=== PATIENT | female | born 1955 | race Caucasian/White ===

== ENCOUNTER 2016-11-23 12:23 | Inpatient (IN) | payer MEDICARE, OTHER ==
[~2016-11-23 12:23] MED LIST: ABIL5TAB6 PO; ADVAI100I PO; ALBU0.086 NEB; AMBI10TA PO; CLON1 PO; CYCL1PAK PO; DULO20 PO; GABA100C4 PO; IBUP600 PO; LASI20TA PO; LEVO.05 PO; NORT75CA PO; OMEP20TA39 PO; OXYM10TA5 PO; RANI150 PO
--- NOTE | 2016-11-23 13:36 | RADHPO ---
EXAM DATE/TIME: 11/23/2016 13:11 [place] COMPARISON: CHEST PA & LAT, February 24, 2016, 1:11. INDICATIONS : Cough, chest pain, short of breath. MEDICAL HISTORY : Chronic obstructive pulmonary disease. SURGICAL HISTORY : None. ENCOUNTER: Initial ACUITY: 2 days PAIN SCORE: 7/10 LOCATION: Bilateral chest FINDINGS: PA and lateral views of the chest demonstrate the lungs to be symmetrically aerated without evidence of mass, infiltrate or effusion. The cardiomediastinal contours are unremarkable. Osseous structure s are intact. CONCLUSION: Normal examination with persistent small lung volumes. Michael Juárez MD on November 23, 2016 at 13:34 Board Certified Radiologist. This report was verified electronically.
[2016-11-23] MEDS ORDERED: cefTRIAXone 1,000 MG/NS 100 ML IV SCH ×2 (14:00)
[2016-11-23 14:35] LABS: AUTOMATED NEUTROPHIL # 10.3 TH/MM3 (1.8-7.7); BASOPHIL # 0.2 TH/MM3 (0-0.2); BASOPHIL % 1.7 % (0.0-2.0); EOSINOPHIL # 0.1 TH/MM3 (0-0.4); EOSINOPHIL % 0.7 % (0.0-4.0); HEMATOCRIT 40.4 % (35.0-46.0); HEMO FLAGS DIFF FINAL; LYMPH % 14.3 % (9.0-44.0); LYMPHOCYTE # 1.9 TH/MM3 (1.0-4.8); MEAN CORPUSCULAR HEMOGLOBIN 29.6 PG (27.0-34.0); MEAN CORPUSCULAR HGB CONC 32.9 % (32.0-36.0); MONO % 6.8 % (0.0-8.0); NEUT % 76.5 % (16.0-70.0); PLATELET COUNT 274 TH/MM3 (150-450); RED BLOOD COUNT 4.49 MIL/MM3 (4.00-5.30); RED CELL DISTRIBUTION WIDTH 13.9 % (11.6-17.2); WHITE BLOOD COUNT 13.4 TH/MM3 (4.0-11.0)
[2016-11-23 14:45] LABS: CHLORIDE 102 MEQ/L (98-107); POTASSIUM 3.6 MEQ/L (3.5-5.1); SODIUM (NA) 142 MEQ/L (136-145)
[2016-11-23 14:49] LABS: ANION GAP 8 MEQ/L (5-15); BICARBONATE 32.2 MEQ/L (21.0-32.0)
[2016-11-23 14:52] LABS: BLOOD UREA NITROGEN 16 MG/DL (7-18)
[2016-11-23 14:53] LABS: ALT (GPT) 50 U/L (10-53); AST (GOT) 16 U/L (15-37); GLOMERULAR FILTRATION RATE 71 ML/MIN (>89); TOTAL BILIRUBIN ADULT 0.3 MG/DL (0.2-1.0)
[2016-11-23 14:55] LABS: ALKALINE PHOSPHATASE 86 U/L (45-117)
[2016-11-23] MEDS: RESP: ALBUTEROL 2.5 MG/IPRATROPIUM 0.5 MG NEB (SCH) NEB ×2 (15:15→22:17)
[2016-11-23 15:19] VITALS: O2SAT 92
[2016-11-23 16:00] VITALS: BP 140/72; PULSE 80; RESP 19; TEMP 97.8; O2SAT 97
[2016-11-23 19:55] LABS: BLOOD, URINE TRACE (NEG); GLUCOSE,URINE NEG (NEG); KETONE, URINE NEG (NEG)
[2016-11-23 19:56] LABS: NITRITE,URINE POS (NEG)
[2016-11-23 19:59] LABS: METHOD OF COLLECTION CLEAN CATCH; RBC, URINE 0-3 /hpf (0-3); URINE COLOR YELLOW (YELLW/STRAW)
[2016-11-23 20:00] VITALS: BP 130/86; PULSE 95; RESP 20; TEMP 99.3; O2SAT 93
[2016-11-23 20:00] LABS: BACTERIA, URINE MANY /hpf
[2016-11-23 20:03] LABS: BARBITURATES, URINE NEG (NEG); COCAINE, URINE NEG (NEG)
[2016-11-23 20:04] LABS: AMPHETAMINE, URINE NEG (NEG)
[2016-11-23 20:06] VITALS: PULSE 91
[2016-11-23] MEDS: AZITHROMYCIN 500 MG/NS 250 ML IV SCH ×2 (20:46)
[2016-11-23] MEDS: BUDESONIDE-FORMOTEROL 160/4.5 MCG INHALER INH SCH (20:46)
[2016-11-23] MEDS: FLUoxetine HCL 10 MG CAP PO SCH (20:47)
[2016-11-23] MEDS: cefTRIAXone 1,000 MG/NS 100 ML IV SCH ×2 (20:47)
[2016-11-23] MEDS: CYCLOBENZAPRINE HCL 10 MG TAB PO SCH (20:48)
[2016-11-23] MEDS: GABAPENTIN 100 MG CAP PO SCH (20:48)
[2016-11-23] MEDS: clonazePAM 1 MG TAB PO SCH (20:48)
[2016-11-23] MEDS: DIVALPROEX SODIUM E.R. 500 MG TAB PO SCH (20:48)
[2016-11-23] MEDS: OXYMORPHONE 5 MG PO SCH (20:48)
[2016-11-23] MEDS: ARIPiprazole 5 MG TAB PO SCH (20:48)
[2016-11-23 22:17] VITALS: O2SAT 92
[2016-11-24] VITALS (9 sets, daily range): BP systolic 102–142; BP diastolic 64–86; PULSE 87–106; RESP 18–20; TEMP 97.1–98.8; O2SAT 93–98
[2016-11-24] MEDS: RESP: ALBUTEROL 2.5 MG/IPRATROPIUM 0.5 MG NEB (SCH) NEB ×4 (05:16→21:01)
[2016-11-24] MEDS: LEVOTHYROXINE SODIUM 100 MCG TAB PO SCH (05:49)
[2016-11-24] MEDS: BUDESONIDE-FORMOTEROL 160/4.5 MCG INHALER INH SCH ×2 (09:23→22:15)
[2016-11-24] MEDS: GABAPENTIN 100 MG CAP PO SCH ×2 (09:24→22:13)
[2016-11-24] MEDS: clonazePAM 1 MG TAB PO SCH ×2 (09:24→22:16)
[2016-11-24] MEDS: FUROSEMIDE 20 MG TAB PO SCH (09:25)
[2016-11-24] MEDS: PANTOPRAZOLE SOD 20 MG DELAYED RELEASE TAB PO SCH (09:25)
[2016-11-24] MEDS: CYCLOBENZAPRINE HCL 10 MG TAB PO SCH ×2 (09:25→22:16)
[2016-11-24] MEDS: FLUoxetine HCL 10 MG CAP PO SCH ×2 (09:26→22:14)
[2016-11-24] MEDS ORDERED: methylPREDNISolone SOD SUCC 125 MG/2 ML VIAL IV PUSH ONE (09:45)
[2016-11-24] MEDS: OXYMORPHONE 5 MG PO SCH ×2 (10:15→22:15)
[2016-11-24] MEDS: BENZONATATE 100 MG CAP PO PRN ×2 (10:31→22:14)
[2016-11-24] MEDS: ARIPiprazole 5 MG TAB PO SCH (22:14)
[2016-11-24] MEDS: DIVALPROEX SODIUM E.R. 500 MG TAB PO SCH (22:15)
[2016-11-24] MEDS: AZITHROMYCIN 500 MG/NS 250 ML IV SCH ×2 (22:20)
[2016-11-24] MEDS: cefTRIAXone 1,000 MG/NS 100 ML IV SCH ×2 (23:42)
[2016-11-25] VITALS (9 sets, daily range): BP systolic 109–128; BP diastolic 65–80; PULSE 79–94; RESP 20; TEMP 96.3–98.4; O2SAT 95–99
[2016-11-25] MEDS: RESP: ALBUTEROL 2.5 MG/IPRATROPIUM 0.5 MG NEB (SCH) NEB ×4 (03:50→21:29)
[2016-11-25] MEDS: LEVOTHYROXINE SODIUM 100 MCG TAB PO SCH (06:08)
--- NOTE | 2016-11-25 08:42 | MH ---
cc: JAVIER BAXTER M.D. DATE OF ADMISSION: 11/23/2016 DATE OF : 1955 CHIEF COMPLAINT Shortness of breath or cough. HISTORY OF PRESENT ILLNESS Ms. Johnston is a 61-year-old white female with a past history of asthma and chronic narcotic use and medications for bipolar who presented to the office with cough and congestion, productive sputum that is thick yellow, low-grade fever all of which was affecting her sleeping. Yesterday in the office she was unable to even stay awake during exam and was very lethargic, O2 sats maintained in the low 90s on room air but would drop as she would fall asleep. Due to her condition at that time and tachycardia, she was encouraged to come to the hospital for admission and treatment. She feels a bit better regarding the cough this AM, still fatigued. Nausea last PM. PAST MEDICAL HISTORY 1. Hypertension. 2. Hyperlipidemia. 3. Diabetes. 4. Hypothyroid. 5. History of colitis and diverticulosis. 6. Kidney stones. 7. Migraines. 8. History of seizures. 9. Bipolar disorder. 10. Gastroesophageal reflux disease. 11. Morbid obesity. 12. Recurrent cellulitis. 13. Chronic low back pain. 14. Knee pain. 15. Tremor. 16. Trouble staying awake during the day. PAST SURGICAL HISTORY 1. Cholecystectomy in 1979. 2. Carpal tunnel surgery. 3. Bilateral hand surgery. 4. Hysterectomy. 5. Appendectomy. 6. Upper endoscopy, lower endoscopy. SOCIAL HISTORY She is single. She is not currently employed. She is on disability since 2008. She has a GED for her education. She has a 30 pack-year history of tobacco use, quit in 1984. MEDICATIONS 1. Furosemide 20 mg daily. 2. Omeprazole 20 mg twice a day. 3. Levothyroxine 100 mcg daily. 4. Advair Diskus 250/50 mcg one puff b.i.d. 5. Ventolin p.r.n. shortness of breath. 6. Duloxetine 60 mg twice a day given to her by Dr. Ignacio in Psychiatry. 7. Cyclobenzaprine 10 mg t.i.d. p.r.n. muscle spasm. 8. Zolpidem 10 mg at bedtime (stopped in September 2016). 9. Abilify 15 mg a half a tablet at bedtime. 10. Clonazepam 2 mg twice a day. 11. Divalproex ER 500 mg p.o. at bedtime. 12. Gabapentin 200 mg two capsules twice a day. 13. Opana ER 15 mg p.o. t.i.d. She states that was just increased by her pain management, Dr. Jeff. On review of the [place] Prescription Drug Monitoring Program, it looks like she received 90 Opana ER on November 18 and clonazepam 2 mg #60 on 11/03/2016 and that her prescriptions have pretty much been filled monthly over the past year, and that the Opana had gone from 10 mg four times a day to 15 mg three times a day in the past month. ALLERGIES INDERAL LA - CAUSED SHORTNESS OF BREATH. CODEINE - CAUSED HER STOMACH PAIN. FAMILY HISTORY She has a daughter with hypertension and migraines. Dad has CHF and emphysema. Mom with a history of colon cancer, headaches, hypertension, cholesterol, diabetes. IMMUNIZATIONS The patient has refused immunizations. OTHER PHYSICIANS Dr. Jeff in Pain Management. Dr. Ignacio in Psychiatry. She has apparently recently seen Dr. Stevens in Neurology, I do not have any notes from him. I was trying to get her in for sleep apnea evaluation. REVIEW OF SYSTEMS She notes tightness to her chest, shortness of breath, cough, sputum production. No current headaches. She has generalized pain mostly to her back. Nausea for which she states she takes Phenergan given to her by another physician. She has no lower extremity edema. She has difficulty with sleeping although the staff noted last night that she appeared to be sleeping the majority of the night. She falls asleep during the day. She has had no diarrhea, no constipation, no actual vomiting, just nausea. remainder ROS is negative. PHYSICAL EXAMINATION VITAL SIGNS: She has been afebrile since her admission. Heart rate has been in the 90s up to 106, respiratory rate 18-20, blood pressure has been in the 120s-142/86, O2 sats 93-96%, it appears to be that she has been on room air the whole time, there was no mention from respiratory as to whether she had any apneic type events during the evening. She is not on the continuous pulse ox. GENERAL: She is an obese white female in no acute distress. She looks more alert today than she did in the office yesterday. She is able to answer questions but really seems to have difficulty in processing thoughts and plan of care. HEENT: Pupils are equal and reactive. She is able to keep her eyes open today which is different than yesterday. Oropharynx does show mild thrush. NECK: Neck is supple without lymphadenopathy. No supraclavicular adenopathy. CARDIOVASCULAR: Regular rate and rhythm, slightly fast in 80s-90s. No irregularity. LUNGS: The lungs show significant wheezing bilaterally. Moist cough without sputum this morning. Diffusely decreased breath sounds throughout. ABDOMEN: The abdomen is soft, obese, nontender. EXTREMITIES: Extremities show scars from multiple prior skin infections. She has got nodules to her arms from picking but no currently open wounds or signs of cellulitis. She does sit with her legs curled underneath her. She seems to be moving about in the bed fairly well this morning. NEUROLOGIC: She is slow in her speech but otherwise oriented to place and time. LABORATORY DATA The white count was 13.4, hemoglobin 13, hematocrit 40, platelets of 274, neutrophils slightly elevated at 76.5%. Her comprehensive metabolic panel was essentially normal with an albumin of 3.2 and GFR of 71. She has a TSH of 3.2. Urinalysis was hazy with trace blood, positive nitrites, trace leukocyte esterase, many bacteria, pending culture. Urine toxicology remarkably was negative for opiates and amphetamines and benzodiazepines although she is on those medications. She had a urine cocaine and cannabinoids negative. Her valproic acid level was 48 which is low. Pending urine and blood cultures as well as sputum culture. IMAGING Chest x-ray was negative for CHF or pneumonia, overall clear. ASSESSMENT AND PLAN 1. Asthma exacerbation. She has no current tobacco use. I have continued her on her Advair Diskus. I will give her a dose of Solu-Medrol today. Continue on the Rocephin and Zithromax with DuoNebs q.i.d. Increase activity as tolerated. I have significant concern with her breathing given her other medications that she uses. 2. Chronic insomnia. She does take Ambien at home as well as multiple other sedating medications. I have again encouraged that she should not be taking those. I do not see on her medication list that she has actually filled that since June so my hope is that she is no longer using that per our previous discussions. I am really suspicious that she has sleep apnea and I have been trying to get her evaluated as an outpatient but with little success due to her insurance. We will continue to try to get her a sleep apnea evaluation. 3. Tachycardia. She had heart rates into the 110s-120s in the office. She seems to be doing better today now that her lungs are open a little bit better and she is on less medications. 4. Bipolar disorder. She sees Dr. Ignacio as an outpatient. I have sent him letters in the past regarding my concerns for her medications, using the high doses of Duloxetine as well as her other medications that are concerning for sedation. The patient feels that she cannot tolerate to be on different doses and does not want to change any of her medications. 5. Chronic back pain. She has been seeing pain management for some time. She just recently changed pain management physicians and they have increased her Opana ER from 10 mg q.i.d. to 15 mg t.i.d. She seems to be more lethargic at this time and also taking the gabapentin, the valproic and the Abilify as well as a cyclobenzaprine all of which can sedate her. I had previously sent a letter to her prior pain management doctor encouraging to try to wean. The patient is totally not interested in weaning. I have asked case management if we could try to get her into a rehab facility post hospitalization to wean medications to decrease issues with her breathing but she declines at this time. We will reevaluate with that again tomorrow. I asked the patient regarding her medications since her drug screen came back negative despite multiple medications, she states that she is taking them routinely. She does appear as though she has been on these medications by her behavior so I am not sure how the drug screen is negative. We will continue to evaluate that and I will contact her other physicians in that regard. We will reevaluate her tomorrow regarding her breathing. 6. GERD. We will continue her on her proton pump inhibitor. MD WESTLEY Mcneil/ANA LUISA /5:25 PM /8:32 AM SILKE
[2016-11-25] MEDS: FUROSEMIDE 20 MG TAB PO SCH (09:27)
[2016-11-25] MEDS: FLUoxetine HCL 10 MG CAP PO SCH ×2 (09:27→20:55)
[2016-11-25] MEDS: CYCLOBENZAPRINE HCL 10 MG TAB PO SCH ×2 (09:28→20:56)
[2016-11-25] MEDS: PANTOPRAZOLE SOD 20 MG DELAYED RELEASE TAB PO SCH (09:28)
[2016-11-25] MEDS: clonazePAM 1 MG TAB PO SCH ×2 (09:28→20:57)
[2016-11-25] MEDS: GABAPENTIN 100 MG CAP PO SCH ×2 (09:28→20:55)
[2016-11-25] MEDS: OXYMORPHONE 5 MG PO SCH ×2 (09:29→20:55)
[2016-11-25] MEDS: BUDESONIDE-FORMOTEROL 160/4.5 MCG INHALER INH SCH ×2 (09:30→20:54)
[2016-11-25] MEDS: BENZONATATE 100 MG CAP PO PRN (13:45)
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
[2016-11-25] MEDS: ARIPiprazole 5 MG TAB PO SCH (20:56)
[2016-11-25] MEDS: CEFUROXIME AXETIL 500 MG TAB PO SCH (20:57)
[2016-11-25] MEDS: DIVALPROEX SODIUM E.R. 500 MG TAB PO SCH (20:57)
[2016-11-25] MEDS: predniSONE 20 MG TAB PO SCH (20:58)
[2016-11-26] VITALS: BP 111/71; PULSE 85; RESP 20; TEMP 98; O2SAT 95
[2016-11-26] MEDS: RESP: ALBUTEROL 2.5 MG/IPRATROPIUM 0.5 MG NEB (SCH) NEB ×2 (03:42→09:19)
[2016-11-26 04:00] VITALS: BP 125/79; PULSE 84; RESP 20; TEMP 97.9; O2SAT 79
[2016-11-26] MEDS: LEVOTHYROXINE SODIUM 100 MCG TAB PO SCH (05:36)
[2016-11-26 08:00] VITALS: BP 131/90; PULSE 79; RESP 20; TEMP 96.9; O2SAT 95
[2016-11-26] MEDS: PANTOPRAZOLE SOD 20 MG DELAYED RELEASE TAB PO SCH (08:01)
[2016-11-26] MEDS: CYCLOBENZAPRINE HCL 10 MG TAB PO SCH (08:01)
[2016-11-26] MEDS: clonazePAM 1 MG TAB PO SCH (08:01)
[2016-11-26] MEDS: predniSONE 20 MG TAB PO SCH (08:01)
[2016-11-26] MEDS: CEFUROXIME AXETIL 500 MG TAB PO SCH (08:01)
[2016-11-26] MEDS: FUROSEMIDE 20 MG TAB PO SCH (08:01)
[2016-11-26] MEDS: GABAPENTIN 100 MG CAP PO SCH (08:03)
[2016-11-26] MEDS: FLUoxetine HCL 10 MG CAP PO SCH (08:04)
[2016-11-26] MEDS: OXYMORPHONE 5 MG PO SCH (08:04)
[2016-11-26] MEDS: BUDESONIDE-FORMOTEROL 160/4.5 MCG INHALER INH SCH (08:05)
[2016-11-26] MEDS ORDERED: AZITHROMYCIN 250 MG TAB PO SCH (09:00)
[2016-11-26 09:20] VITALS: O2SAT 98
[2016-11-26] MEDS ORDERED: OXYM5TAB3 PO (09:42)
[2016-11-26] MEDS ORDERED: CEFT500T3 PO (09:42)
[2016-11-26] MEDS ORDERED: PRED20 PO (09:42)
[2016-11-26] MEDS ORDERED: ARIP1TAB11 PO (09:42)
[2016-11-26] MEDS ORDERED: BENZ100 PO (09:42)
[2016-11-26] MEDS ORDERED: DEPA500T3 PO (09:42)
[2016-11-26] MEDS ORDERED: IPRASOL INH (09:43)
[2016-11-26] MEDS ORDERED: CYMB60CA PO (09:45)
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
== END 2016-11-26 11:59 | disposition home or self-care (01) | DRG 191 ==
LOC: PH3B 12:23
PROVIDERS: ADMIT Family Medicine; ATTEND Family Medicine
DX: J44.1 Chronic obstructive pulmonary disease with (acute) exacerbation (principal); J45.901 Unspecified asthma with (acute) exacerbation; R56.9 Unspecified convulsions; E66.01 Morbid (severe) obesity due to excess calories; K21.9 Gastro-esophageal reflux disease without esophagitis; F31.9 Bipolar disorder, unspecified; I10 Essential (primary) hypertension; F51.04 Psychophysiologic insomnia; R00.0 Tachycardia, unspecified; G89.29 Other chronic pain; M54.9 Dorsalgia, unspecified; E78.5 Hyperlipidemia, unspecified; E11.9 Type 2 diabetes mellitus without complications; E03.9 Hypothyroidism, unspecified; G43.909 Migraine, unspecified, not intractable, without status migrainosus; M25.569 Pain in unspecified knee; Z87.891 Personal history of nicotine dependence
CPT/HCPCS: 71020; 76937; 80053; 80164; 80307; 81001; 84443; 85025; 87040; 87070; 87077; 87086; 87185; 87186; 87205; 94640; 94664; J0456; J0696; J2930; J7050; J7512

== ENCOUNTER 2017-01-09 15:21 | Emergency (ER) | payer MEDICARE, MEDICAID ==
[~2017-01-09] VITALS: Ht 157.5 cm; Wt 108.0 kg
[~2017-01-09 15:21] MED LIST changes: -ABIL5TAB6 PO; -ALBU0.086 NEB; -AMBI10TA PO; +ARIP1TAB11 PO; +BENZ100 PO; +CEFT500T3 PO; +CYMB60CA PO; +DEPA500T3 PO; +IPRASOL INH; -NORT75CA PO; -OXYM10TA5 PO; +OXYM5TAB3 PO; +PRED20 PO
[2017-01-09 15:27] VITALS: BP 117/82; PULSE 102; RESP 16; TEMP 98.4; O2SAT 96
[2017-01-09] MEDS ORDERED: CYCL1TAB29 PO (15:43)
[2017-01-09] MEDS ORDERED: OMEP20TA PO (15:50)
[2017-01-09] MEDS ORDERED: FURO1TAB62 PO (15:51)
[2017-01-09] MEDS ORDERED: ADVA250A INH (15:51)
[2017-01-09] MEDS ORDERED: CYMB30CA PO (15:51)
[2017-01-09] MEDS ORDERED: LEVO100T5 PO (15:51)
[2017-01-09] MEDS ORDERED: GABA100C4 PO (15:51)
[2017-01-09] MEDS ORDERED: PROM12.54 PO (15:51)
[2017-01-09] MEDS ORDERED: OXYM15TA PO (15:51)
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
--- NOTE | 2017-01-09 16:29 | RADHPO ---
EXAM DATE/TIME: 01/09/2017 15:57 [facility] COMPARISON: No previous studies available for comparison. INDICATIONS : Fall. Left ankle pain. MEDICAL HISTORY : None. SURGICAL HISTORY : None. ENCOUNTER: Initial ACUITY: 1 day PAIN SCORE: 8/10 LOCATION: Left lateral FINDINGS: Three view exam was performed of the left ankle. The bony structures are in normal alignment. No ev idence of fracture, dislocation. The ankle mortise is intact. No radiopaque foreign bodies are seen. Bony mineralization is normal. CONCLUSION: 1. No acute bone abnormality. Soft tissue swelling at the left ankle. Evert Malik MD on January 09, 2017 at 16:25 Board Certified Radiologist. This report was verified electronically.
[2017-01-09] MEDS ORDERED: ONDANSETRON ODT 4 MG TAB PO ONE (16:45)
== END 2017-01-09 16:56 | disposition home or self-care (01) ==
LOC: PHEFT 15:21
DX: S93.402A Sprain of unspecified ligament of left ankle, initial encounter (principal); S90.32XA Contusion of left foot, initial encounter; J45.909 Unspecified asthma, uncomplicated; I10 Essential (primary) hypertension; E78.00 Pure hypercholesterolemia, unspecified; J44.9 Chronic obstructive pulmonary disease, unspecified; E03.9 Hypothyroidism, unspecified; M79.7 Fibromyalgia; K21.9 Gastro-esophageal reflux disease without esophagitis; Z87.891 Personal history of nicotine dependence
CPT/HCPCS: 73610; 99283; L1906

== ENCOUNTER 2017-01-16 17:36 | Emergency (ER) | payer MEDICARE, MEDICAID ==
[~2017-01-16] VITALS: Ht 157.5 cm; Wt 111.0 kg
[~2017-01-16 17:36] MED LIST changes: +ADVA250A INH; -ADVAI100I PO; -BENZ100 PO; -CEFT500T3 PO; -CLON1 PO; -CYCL1PAK PO; +CYCL1TAB29 PO; +CYMB30CA PO; -DULO20 PO; +FURO1TAB62 PO; -IBUP600 PO; -LASI20TA PO; -LEVO.05 PO; +LEVO100T5 PO; +OMEP20TA PO; -OMEP20TA39 PO; +OXYM15TA PO; -OXYM5TAB3 PO; -PRED20 PO; +PROM12.54 PO; -RANI150 PO
[2017-01-16 17:55] VITALS: BP 130/93; PULSE 100; RESP 16; TEMP 98.5; O2SAT 95
--- NOTE | 2017-01-16 18:33 | PD ---
HPI Chief Complaint: Injury Time Seen by Provider: 18:30 Travel History International Travel<30 days: No Contact w/Intl Traveler<30days: No Traveled to known affect area: No History of Present Illness HPI Patient comes in complaining of continued left foot pain. Patient states she was emergency department week ago after injuring her left ankle and foot. Patient states they only did an ankle x-ray, but not her foot her foot. Patient reports she has not followed up with anyone yet. Patient states she thought she was doing fine when she woke this morning began having more pain in her left foot. Patient denies any new trauma. Pain radiates proximally. Pain is sharp stabbing like in nature over the distal metatarsals of the left foot. PFSH Past Medical History Hx Anticoagulant Therapy: No Arthritis: Yes Asthma: Yes Bipolar Disorder: Yes Anxiety: Yes Depression: Yes Heart Rhythm Problems: Yes (PVC'S) Cancer: No Cardiac Catheterization: No Cardiovascular Problems: Yes (HTN) High Cholesterol: Yes Congestive Heart Failure: No COPD: Yes Diabetes: No Diminished Hearing: No Endocrine: Yes (HYPOTHYROIDISM) Fibromyalgia: Yes Gastrointestinal Disorders: Yes GERD: Yes Genitourinary: Yes Headaches: Yes Hepatitis: Yes (C) Hiatal Hernia: Yes (GERD; HX ULCER; ESOPHAGEAL STRICTURE) Heparin Induced Thrombocytopen: No Herniated Disk: Yes (L5) Hypertension: Yes Immune Disorder: No Implanted Vascular Access Dvce: No Insomnia: Yes Kidney Stones: Yes Medical other: Yes (ARTHRITIS; FIBROMYALGIA) Musculoskeletal: Yes Neurologic: Yes Psychiatric: Yes Reproductive: No Respiratory: Yes (COPD) Immunizations Current: Yes Migraines: Yes Myocardial Infarction: No Seizures: Yes (PREVIOUS) Shingles: Yes Thyroid Disease: Yes Ulcer: Yes (GASTRIC) Tetanus Vaccination: Unknown Influenza Vaccination: No Menopausal: Yes : 1 Para: 1 Past Surgical History Abdominal Surgery: Yes (GALLBLADDER) Appendectomy: Yes Cholecystectomy: Yes Coronary Artery Bypass Graft: No Gynecologic Surgery: Yes (HYSTERECTOMY) Hysterectomy: Yes Other Surgery: Yes (KIDNEY STONE REMOVAL) Family History Family Myocardial Infarction: Yes Social History Alcohol Use: Yes (occasionally) Tobacco Use: No (QUIT 22 yrs ago smoked 1 1/2 ppd) Substance Use: No Allergies-Medications (Allergen,Severity, Reaction): Coded Allergies: Codeine (Verified Allergy, Severe, Shortness of Breath, 01/16/17) Inderal (Verified Allergy, Severe, Nausea/Vomiting, 01/16/17) Reported Meds & Prescriptions Reported Meds & Active Scripts Active Cymbalta DR (Duloxetine HCl) 60 Mg Capdr 60 Mg PO HS Duoneb (Ipratropium-Albuterol Neb) 0.5-2.5 Mg/3 Ml Neb 1 Nebule INH Q6HR NEB Depakote ER (Divalproex Sodium) 500 Mg Everette 500 Mg PO HS Aripiprazole 5 Mg Tab 7.5 Mg PO HS Reported Advair Diskus Inh (Fluticasone-Salmeterol Inh) 250-50 Mcg/Blist Aer 1 Puff INH BID Rinse mouth after use. Oxymorphone ER 12 HR (Oxymorphone HCl) 15 Mg Tab 15 Mg PO TID PRN Gabapentin 100 Mg Cap 200 Mg PO BID Cymbalta DR (Duloxetine HCl) 30 Mg Capdr 30 Mg PO DAILY Levothyroxine (Levothyroxine Sodium) 100 Mcg Tab 100 Mcg PO DAILY Lasix (Furosemide) 20 Mg Tab 20 Mg PO DAILY Promethazine (Promethazine HCl) 12.5 Mg Tab 12.5 Mg PO Q4H PRN Omeprazole 20 Mg Tab 20 Mg PO DAILY Flexeril (Cyclobenzaprine HCl) 10 Mg Tab 10 Mg PO TID Review of Systems Except as stated in HPI: all other systems reviewed are Neg Physical Exam Narrative GENERAL: Well-developed, overly nourished, in no acute distress, and non-ill appearing. SKIN: Focused skin assessment warm and dry. Ecchymosis noted over the dorsal aspect of the first second and third toes of the left lower extremity. HEAD: Atraumatic. Normocephalic. EYES: Pupils equal and round. EOMI. No scleral icterus. No injection or drainage. ENT: No nasal bleeding or discharge. Mucous membranes pink and moist. NECK: Trachea midline. Supple. No nuclear rigidity. CARDIOVASCULAR: Dorsal pulses 2+, intact, bilaterally. Capillary refill less than 2 seconds. RESPIRATORY: No accessory muscle use. No respiratory distress. MUSCULOSKELETAL: No obvious deformities. No clubbing. No cyanosis. No edema. Full range of motion. Ankle: Neagative anterior draw and Prieto test. Negative Matthias's sign. No laxity noted with passive inversion and eversion of BL ankles. Negative squeeze test. Pulses equal BL distal to injury. Capillary refill less than 2 seconds distal to injury and equal BL. Sensation equal BL 1st web space. FROM of toes distal to injury and equal BL. NV intact distal to injury and equal BL. Dorsal pulses equal BL. Patient reports tenderness over the distal metatarsals of left lower extremity. There is no crepitus. NEUROLOGICAL: Awake and alert. No obvious cranial nerve deficits. Motor grossly within normal limits. Normal speech. PSYCHIATRIC: Appropriate mood and affect; insight and judgment normal. Data Data Last Documented VS Vital Signs Date Time Temp Pulse Resp B/P Pulse Ox O2 Delivery O2 Flow Rate FiO2 01/16/17 17:55 98.5 100 16 130/93 95 Orders Foot, Complete ([id number]) (01/16/17 ) Ice/Cold Pack (01/16/17 18:29) Ketorolac Inj (Toradol Inj) (01/16/17 18:45) MDM Medical Decision Making Medical Screen Exam Complete: Yes Emergency Medical Condition: Yes Differential Diagnosis Fracture, sprain, contusion, other Narrative Course The patient appears to have suffered a contusion of the extremity. There is no clinical evidence to suspect bony injury by exam. Radiographic examination revealed no fracture seen at this time. The patient has full range of motion on active and passive motions. There is no significant edema. There is no proximal or distal joint effusion. The distal extremity appears neurovascularly intact, without evidence of neurovascular injury nor compartment syndrome. Tendon exam also was intact. The patient was discharged and given warnings for vascular compromise. The patient is to follow up with their regular physician or wardrobe manager. The patient agrees with plan. Patient in no obvious distress upon re-evaluation. All pertinent Radiology result(s) discussed with patient. Any questions/concerns in reference to patient diagnosis/condition discussed and clarified prior to patient's discharge. Reinforced sheer importance of close follow up with patient's primary physician or primary care clinic. Instructed patient to return to ED immediately, if symptoms return/worsen. Pt showed understanding of above instructions. Further instructions and recommendations were detailed in discharge paperwork. Pt ambulated without difficulty out of ED at discharge. Diagnosis Primary Impression: Contusion of left foot Qualified Code: S90.32XD - Contusion of left foot, subsequent encounter Referrals: Benny Morales DPM Patient Instructions: Contusion in Adults (ED), General Instructions Additional Instructions: Follow-up with your primary care physician and/or wardrobe manager one to 2 days for reevaluation. Apply ice affected area 20 or as needed for pain. Return to the emergency department if symptoms get worse. Disposition: 01 DISCHARGE HOME Condition: Stable Romulo Nunez Jan 16, 2017 18:33
[2017-01-16] MEDS ORDERED: KETOROLAC TROMETHAMINE 60 MG/2 ML (IM) VIAL IM ONE (18:45)
--- NOTE | 2017-01-16 20:01 | RADHPO ---
EXAM DATE/TIME: 01/16/2017 19:49 [facility] COMPARISON: No previous studies available for comparison. INDICATIONS : Left foot pain from injury last week. MEDICAL HISTORY : Chronic obstructive pulmonary disease. SURGICAL HISTORY : None. ENCOUNTER: Subsequent ACUITY: 1 week PAIN SCORE: 8/10 LOCATION: Left Foot FINDINGS: Three view examination of the left foot demonstrates no soft tissue swelling, dislocation, or fractur e. The tarsal bones appear intact. The interphalangeal and metatarsophalangeal joints are intact. The calcaneus is intact. Moderate size plantar calcaneal spur. Bony mineralization is normal. CONCLUSION: No evidence of fracture or dislocation. Hector Vogel MD on January 16, 2017 at 19:59 Board Certified Radiologist. This report was verified electronically.
== END 2017-01-16 20:15 | disposition home or self-care (01) ==
LOC: PHEFT 17:36
DX: S90.32XD Contusion of left foot, subsequent encounter (principal); J45.909 Unspecified asthma, uncomplicated; I10 Essential (primary) hypertension; E78.00 Pure hypercholesterolemia, unspecified; J44.9 Chronic obstructive pulmonary disease, unspecified; E03.9 Hypothyroidism, unspecified; M79.7 Fibromyalgia; E07.9 Disorder of thyroid, unspecified; Z87.891 Personal history of nicotine dependence; X58.XXXD Exposure to other specified factors, subsequent encounter
CPT/HCPCS: 73630; 96372; 99283; J1885

== ENCOUNTER → 2017-02-10 | Outpatient (CLI) | payer MEDICARE, MEDICAID | LOC: PLAB 12:07 | PROVIDERS: ATTEND Psychiatry & Neurology Psychiatry | DX: F31.9 Bipolar disorder, unspecified (principal) ==

== ENCOUNTER → 2017-03-16 | Outpatient (CLI) | payer MEDICARE, MEDICAID ==
[2017-03-16 16:09] LABS: AUTOMATED NEUTROPHIL # 6.7 TH/MM3 (1.8-7.7); BASOPHIL % 0.5 % (0.0-2.0); EOSINOPHIL # 0.1 TH/MM3 (0-0.4); EOSINOPHIL % 0.6 % (0.0-4.0); HEMO FLAGS DIFF FINAL; LYMPH % 22.8 % (9.0-44.0); LYMPHOCYTE # 2.1 TH/MM3 (1.0-4.8); MEAN CELL VOLUME 93.1 FL (80.0-100.0); MEAN CORPUSCULAR HEMOGLOBIN 30.1 PG (27.0-34.0); MEAN CORPUSCULAR HGB CONC 32.3 % (32.0-36.0); MONO % 5.1 % (0.0-8.0); PLATELET COUNT 325 TH/MM3 (150-450); RED BLOOD COUNT 4.73 MIL/MM3 (4.00-5.30); RED CELL DISTRIBUTION WIDTH 13.9 % (11.6-17.2); WHITE BLOOD COUNT 9.4 TH/MM3 (4.0-11.0)
[2017-03-16 16:27] LABS: ANION GAP 4 MEQ/L (5-15); AST (GOT) 12 U/L (15-37); BICARBONATE 36.9 MEQ/L (21.0-32.0); BLOOD UREA NITROGEN 19 MG/DL (7-18); CHLORIDE 102 MEQ/L (98-107); GLOMERULAR FILTRATION RATE 68 ML/MIN (>89); GLUCOSE,FASTING 96 MG/DL (74-99); POTASSIUM 4.1 MEQ/L (3.5-5.1); SODIUM (NA) 143 MEQ/L (136-145)
[2017-03-16 16:52] LABS: ALKALINE PHOSPHATASE 80 U/L (45-117); ALT (GPT) 30 U/L (10-53); HDL CHOLESTEROL 75.9 MG/DL (40.0-60.0); LDL CHOLESTEROL 103 MG/DL (0-99); TOTAL BILIRUBIN ADULT 0.2 MG/DL (0.2-1.0)
[2017-03-16 22:16] LABS: HEMOGLOBIN A1a 1.1 %; HEMOGLOBIN Ao 83.6 %; HEMOGLOBIN F 1.3 %; HEMOGLOBIN LA1C 2.1 %; HEMOGLOBIN P3 5.7 %
== END ==
LOC: PLAB 02-19 09:08
PROVIDERS: ATTEND Family Medicine
DX: E78.2 Mixed hyperlipidemia (principal); I10 Essential (primary) hypertension; E03.9 Hypothyroidism, unspecified; R73.01 Impaired fasting glucose; R53.83 Other fatigue; F31.9 Bipolar disorder, unspecified
CPT/HCPCS: 36415; 80053; 80061; 80164; 82607; 83036; 84443; 85025

== ENCOUNTER → 2017-03-30 | Outpatient (CLI) | payer MEDICARE, MEDICAID ==
[~2017-03-30] MED LIST changes: +IBUP-1129 PO; +[UNRECOGNIZED DRUG - CODE] IM
[2017-03-30 17:05] LABS: BLOOD, URINE TRACE (NEG); GLUCOSE,URINE NEG (NEG); KETONE, URINE NEG (NEG); NITRITE,URINE NEG (NEG); PH, URINE 7.5 (5.0-8.5); SQUAMOUS EPITHELIAL CELL URINE <1 /hpf (0-5); URINE COLOR YELLOW (YELLW/STRAW)
== END ==
LOC: PLAB 15:22
PROVIDERS: ATTEND Family Medicine
DX: R31.21 Asymptomatic microscopic hematuria (principal); R82.90 Unspecified abnormal findings in urine
CPT/HCPCS: 81001; 87086

== ENCOUNTER 2017-04-02 17:48 | Emergency (ER) | payer MEDICARE, MEDICAID ==
[~2017-04-02] VITALS: Ht 157.5 cm; Wt 110.6 kg
[~2017-04-02 17:48] MED LIST changes: -IBUP-1129 PO; -[UNRECOGNIZED DRUG - CODE] IM
[2017-04-02 18:05] VITALS: BP 164/99; PULSE 94; RESP 16; TEMP 98.2; O2SAT 97
[2017-04-02 18:20] LABS: BLOOD, URINE SMALL (NEG); GLUCOSE,URINE NEG (NEG); KETONE, URINE NEG (NEG); NITRITE,URINE NEG (NEG)
[2017-04-02] MEDS ORDERED: [UNRECOGNIZED DRUG - CODE] IM (18:24)
[2017-04-02 18:27] LABS: COMMENT (UR) CULT NOT INDICATED; CULTURE IF INDICATED CULT NOT INDICATED; METHOD OF COLLECTION CLEAN CATCH; RBC, URINE 0-3 /hpf (0-3); SQUAMOUS EPITHELIAL CELL URINE 0-5 /hpf (0-5); URINE COLOR YELLOW (YELLW/STRAW)
--- NOTE | 2017-04-02 18:39 | PD ---
HPI Chief Complaint: Complaint Time Seen by Provider: 18:21 Travel History International Travel<30 days: No Contact w/Intl Traveler<30days: No Traveled to known affect area: No History of Present Illness HPI 61yo F with PMH of nephrolithiasis, fibromyalgia, COPD presents to the ED with c /o right sided back pain for 3 days. States she saw her PMD Dr. Mckeon 3 days ago and she took some blood work and she does not know the results. States pain is still there and she is a little nauseous. Sharp and achy at the same time, nonradiating and worst with deep breathing. Feels like her kidney stones. Denies any fever, chest pain, sob, vomiting, abdominal pain, dysuria, or hematuria. PFSH Past Medical History Hx Anticoagulant Therapy: No Arthritis: Yes Asthma: Yes Bipolar Disorder: Yes Anxiety: Yes Depression: Yes Heart Rhythm Problems: Yes (PVC'S) Cancer: No Cardiac Catheterization: No Cardiovascular Problems: Yes (HTN) High Cholesterol: Yes Congestive Heart Failure: No COPD: Yes Diabetes: No Diminished Hearing: No Endocrine: Yes (HYPOTHYROIDISM) Fibromyalgia: Yes Gastrointestinal Disorders: Yes GERD: Yes Genitourinary: Yes Headaches: Yes Hepatitis: Yes (C) Hiatal Hernia: Yes (GERD; HX ULCER; ESOPHAGEAL STRICTURE) Heparin Induced Thrombocytopen: No Herniated Disk: Yes (L5) Hypertension: Yes Immune Disorder: No Implanted Vascular Access Dvce: No Insomnia: Yes Kidney Stones: Yes Medical other: Yes (ARTHRITIS; FIBROMYALGIA) Musculoskeletal: Yes Neurologic: Yes Psychiatric: Yes Reproductive: No Respiratory: Yes (copd) Immunizations Current: Yes Migraines: Yes Myocardial Infarction: No Seizures: Yes (PREVIOUS) Shingles: Yes Thyroid Disease: Yes Ulcer: Yes (GASTRIC) Influenza Vaccination: No ?: Not Menopausal: Yes : 1 Para: 1 Past Surgical History Abdominal Surgery: Yes (GALLBLADDER) Appendectomy: Yes Cholecystectomy: Yes Coronary Artery Bypass Graft: No Gynecologic Surgery: Yes (HYSTERECTOMY) Hysterectomy: Yes Other Surgery: Yes (KIDNEY STONE REMOVAL) Family History Family Myocardial Infarction: Yes Social History Alcohol Use: Yes (occasionally) Tobacco Use: No (QUIT) Substance Use: No Allergies-Medications (Allergen,Severity, Reaction): Coded Allergies: Codeine (Verified Allergy, Severe, Shortness of Breath, 04/02/17) Inderal (Verified Allergy, Severe, Nausea/Vomiting, 04/02/17) Reported Meds & Prescriptions Reported Meds & Active Scripts Active Cymbalta DR (Duloxetine HCl) 60 Mg Capdr 60 Mg PO HS Duoneb (Ipratropium-Albuterol Neb) 0.5-2.5 Mg/3 Ml Neb 1 Nebule INH Q6HR NEB Depakote ER (Divalproex Sodium) 500 Mg Everette 500 Mg PO HS Aripiprazole 5 Mg Tab 7.5 Mg PO HS Reported Naloxone Inj (Naloxone HCl) 0.4 Mg/Ml Inj 0.4 Mg IM ONCE PRN Advair Diskus Inh (Fluticasone-Salmeterol Inh) 250-50 Mcg/Blist Aer 1 Puff INH BID Rinse mouth after use. Oxymorphone ER 12 HR (Oxymorphone HCl) 15 Mg Tab 15 Mg PO BID PRN Gabapentin 100 Mg Cap 200 Mg PO BID Cymbalta DR (Duloxetine HCl) 30 Mg Capdr 30 Mg PO DAILY Levothyroxine (Levothyroxine Sodium) 100 Mcg Tab 100 Mcg PO DAILY Lasix (Furosemide) 20 Mg Tab 20 Mg PO DAILY Promethazine (Promethazine HCl) 12.5 Mg Tab 12.5 Mg PO Q4H PRN Omeprazole 20 Mg Tab 20 Mg PO BID Flexeril (Cyclobenzaprine HCl) 10 Mg Tab 10 Mg PO TID Review of Systems Except as stated in HPI: all other systems reviewed are Neg Physical Exam Narrative GENERAL: 61yo F in mild distress. SKIN: Focused skin assessment warm/dry. HEAD: Atraumatic. Normocephalic. CARDIOVASCULAR: Regular rate and rhythm. No murmur appreciated. RESPIRATORY: No accessory muscle use. Clear to auscultation. Breath sounds equal bilaterally. GASTROINTESTINAL: Abdomen soft, mild RUQ ttp. No rebound tenderness or guarding BACK: +CVA tenderness on right. No midline thoracic or lumbar ttp. MUSCULOSKELETAL: No obvious deformities. No clubbing. No cyanosis. No edema. NEUROLOGICAL: Awake and alert. No obvious cranial nerve deficits. Motor grossly within normal limits. Normal speech. PSYCHIATRIC: Appropriate mood and affect; insight and judgment normal. Data Data Last Documented VS Vital Signs Date Time Temp Pulse Resp B/P Pulse Ox O2 Delivery O2 Flow Rate FiO2 04/02/17 19:09 82 16 142/85 98 Room Air 04/02/17 18:05 98.2 Orders Urinalysis - C+S If Indicated (04/02/17 18:11) Complete Blood Count With Diff (04/02/17 18:39) Comprehensive Metabolic Panel (04/02/17 18:39) Ct Abd/Pel W/O Iv Contrast (04/02/17 ) Ketorolac Inj (Toradol Inj) (04/02/17 19:30) Ondansetron Inj (Zofran Inj) (04/02/17 19:30) Sodium Chlor 0.9% 1000 Ml Inj (Ns 1000 M (04/02/17 19:30) Labs Laboratory Tests Test 04/02/17 04/02/17 18:15 18:50 Urine Collection Type CLEAN CATCH Urine Color YELLOW Urine Turbidity CLEAR Urine pH 6.0 Urine Specific [place] 1.013 Urine Protein NEG mg/dL Urine Glucose (UA) NEG mg/dL Urine Ketones NEG mg/dL Urine Occult Blood SMALL Urine Nitrite NEG Urine Bilirubin NEG Urine Leukocyte Esterase NEG Urine RBC 0-3 /hpf Urine Squamous Epithelial 0-5 /hpf Cells Microscopic Urinalysis Comment CULT NOT INDICATED Urine Collection Time 18:15 White Blood Count 9.2 TH/MM3 Red Blood Count 4.67 MIL/MM3 Hemoglobin 13.8 GM/DL Hematocrit 42.5 % Mean Corpuscular Volume 91.1 FL Mean Corpuscular Hemoglobin 29.6 PG Mean Corpuscular Hemoglobin 32.5 % Concent Red Cell Distribution Width 13.1 % Platelet Count 253 TH/MM3 Mean Platelet Volume 8.9 FL Neutrophils (%) (Auto) 67.0 % Lymphocytes (%) (Auto) 24.5 % Monocytes (%) (Auto) 6.9 % Eosinophils (%) (Auto) 0.7 % Basophils (%) (Auto) 0.9 % Neutrophils # (Auto) 6.1 TH/MM3 Lymphocytes # (Auto) 2.3 TH/MM3 Monocytes # (Auto) 0.6 TH/MM3 Eosinophils # (Auto) 0.1 TH/MM3 Basophils # (Auto) 0.1 TH/MM3 CBC Comment DIFF FINAL Differential Comment Sodium Level 144 MEQ/L Potassium Level 3.6 MEQ/L Chloride Level 104 MEQ/L Carbon Dioxide Level 35.6 MEQ/L Anion Gap 4 MEQ/L Blood Urea Nitrogen 14 MG/DL Creatinine 0.75 MG/DL Estimat Glomerular Filtration 78 ML/MIN Rate Random Glucose 96 MG/DL Calcium Level 8.6 MG/DL Total Bilirubin 0.2 MG/DL Aspartate Amino Transf 22 U/L (AST/SGOT) Alanine Aminotransferase 36 U/L (ALT/SGPT) Alkaline Phosphatase 79 U/L Total Protein 7.0 GM/DL Albumin 3.1 GM/DL MDM Medical Decision Making Medical Screen Exam Complete: Yes Emergency Medical Condition: Yes Differential Diagnosis Nephrolithiasis vs. pyelonephritis vs. choledocholithiasis vs. musculoskeletal pain Narrative Course 61yo F with right back pain. UA showed +occult blood. Pt seen at end of my shift so sign out to next team to follow up labs, CT s/p and disposition. Diagnosis Primary Impression: Right flank pain Lolly Zuleta DO Apr 02, 2017 18:39
[2017-04-02 19:09] VITALS: BP 142/85; PULSE 82; RESP 16; O2SAT 98
[2017-04-02 19:11] LABS: AUTOMATED NEUTROPHIL # 6.1 TH/MM3 (1.8-7.7); BASOPHIL # 0.1 TH/MM3 (0-0.2); BASOPHIL % 0.9 % (0.0-2.0); EOSINOPHIL # 0.1 TH/MM3 (0-0.4); EOSINOPHIL % 0.7 % (0.0-4.0); HEMATOCRIT 42.5 % (35.0-46.0); HEMO FLAGS DIFF FINAL; LYMPH % 24.5 % (9.0-44.0); LYMPHOCYTE # 2.3 TH/MM3 (1.0-4.8); MEAN CELL VOLUME 91.1 FL (80.0-100.0); MEAN CORPUSCULAR HEMOGLOBIN 29.6 PG (27.0-34.0); MEAN CORPUSCULAR HGB CONC 32.5 % (32.0-36.0); MONO % 6.9 % (0.0-8.0); PLATELET COUNT 253 TH/MM3 (150-450); RED BLOOD COUNT 4.67 MIL/MM3 (4.00-5.30); RED CELL DISTRIBUTION WIDTH 13.1 % (11.6-17.2); WHITE BLOOD COUNT 9.2 TH/MM3 (4.0-11.0)
[2017-04-02 19:18] LABS: CHLORIDE 104 MEQ/L (98-107); POTASSIUM 3.6 MEQ/L (3.5-5.1); SODIUM (NA) 144 MEQ/L (136-145)
[2017-04-02 19:22] LABS: ANION GAP 4 MEQ/L (5-15); BICARBONATE 35.6 MEQ/L (21.0-32.0); BLOOD UREA NITROGEN 14 MG/DL (7-18)
[2017-04-02 19:24] LABS: ALT (GPT) 36 U/L (10-53)
[2017-04-02 19:25] LABS: AST (GOT) 22 U/L (15-37); GLOMERULAR FILTRATION RATE 78 ML/MIN (>89)
[2017-04-02 19:26] LABS: TOTAL BILIRUBIN ADULT 0.2 MG/DL (0.2-1.0)
[2017-04-02 19:28] LABS: ALKALINE PHOSPHATASE 79 U/L (45-117)
[2017-04-02] MEDS ORDERED: SODIUM CHLOR 0.9% 1000 ML INJ 1,000 ML IV ONE (19:30)
[2017-04-02] MEDS ORDERED: ONDANSETRON HCL 4 MG/2 ML VIAL IV PUSH ONE (19:30)
[2017-04-02] MEDS ORDERED: KETOROLAC TROMETHAMINE 30 MG/ML (IVP) VIAL IV PUSH ONE (19:30)
--- NOTE | 2017-04-02 19:40 | RADRPT ---
EXAM DATE/TIME: 04/02/2017 19:02 [facility] COMPARISON: No previous studies available for comparison. INDICATIONS : Right flank pain for 1 week. Positive history of renal stones. ORAL CONTRAST: No oral contrast ingested. RADIATION DOSE: 28.06 CTDIvol (mGy) MEDICAL HISTORY : Chronic obstructive pulmonary disease. Renal calculi. Cardiovascular diseaseHypertension, hiatal jane ia, GERD, Hep C SURGICAL HISTORY : Appendectomy. Cholecystectomy.Hysterectomy. ENCOUNTER: Initial ACUITY: 1 week PAIN SCALE: 8/10 LOCATION: Right flank TECHNIQUE: Volumetric scanning of the abdomen and pelvis was performed. Using automated exposure control and ad justment of the mA and/or kV according to patient size, radiation dose was kept as low as reasonably achievable to obtain optimal diagnostic quality images. DICOM format image data is available electro nically for review and comparison. FINDINGS: LOWER LUNGS: The visualized lower lungs are clear. LIVER: Homogeneous density without lesion. There is no dilation of the biliary tree. The patient is status post cholecystectomy. SPLEEN: Normal size without lesion. PANCREAS: Within normal limits. KIDNEYS: Normal in size and shape. There is no mass, stone, or hydronephrosis. ADRENAL GLANDS: Within normal limits. VASCULAR: There is no aortic aneurysm. BOWEL/MESENTERY: The stomach, small bowel, and colon demonstrate no acute abnormality. There is no free intraperitone al air or fluid. ABDOMINAL WALL: Within normal limits. RETROPERITONEUM: There is no lymphadenopathy. BLADDER: No wall thickening or mass. REPRODUCTIVE: Within normal limits. INGUINAL: There is no lymphadenopathy or hernia. MUSCULOSKELETAL: Within normal limits for patient age. CONCLUSION: 1. The kidneys are unremarkable in appearance with no renal calculi structures. 2. Status post cholecystectomy. Ag Thayer MD on April 02, 2017 at 19:36 Board Certified Radiologist. This report was verified electronically.
[2017-04-02] MEDS ORDERED: IBUP-1129 PO (19:56)
--- NOTE | 2017-04-02 19:56 | PD ---
Physical Exam Date Seen by Provider: Apr 02, 2017 Time Seen by Provider: 19:00 Narrative Patient seen and initially evaluated by Dr. Zuleta, please see previous notes for further details. Awaiting lab work and CAT scan for flank pain. Laboratory Tests Test 04/02/17 04/02/17 18:15 18:50 Urine Occult Blood SMALL (NEG) Carbon Dioxide Level 35.6 MEQ/L (21.0-32.0) Anion Gap 4 MEQ/L (5-15) Estimat Glomerular Filtration 78 ML/MIN (>89) Rate Albumin 3.1 GM/DL (3.4-5.0) Last 24 hours Impressions Abdomen/Pelvis CT 04/02/17 0000 Signed Impressions: Service Date/Time: Sunday, April 02, 2017 19:02 - CONCLUSION: 1. The kidneys are unremarkable in appearance with no renal calculi structures. 2. Status post cholecystectomy. Ag Thayer MD Patient was given Toradol and Zofran in the ER for pain and on reevaluation at 8 :54 PM, is feeling improvement. CAT scan did not show any signs of acute intra- abdominal processes or obvious signs of kidney stones. Lab work was otherwise unremarkable. There was no obvious signs of UTI. At this point, patient is more likely to be presenting with musculoskeletal pain or strain. Patient states that it started when she got off the table. At this point, my plan would be to release the patient with follow-up to her primary care physician with further symptomatic relief or pain. Return for any worsening in symptoms as needed. The plan was discussed with the patient and she states understanding. Data Data Last Documented VS Vital Signs Date Time Temp Pulse Resp B/P Pulse Ox O2 Delivery O2 Flow Rate FiO2 04/02/17 19:09 82 16 142/85 98 Room Air 04/02/17 18:05 98.2 Orders Urinalysis - C+S If Indicated (04/02/17 18:11) Complete Blood Count With Diff (04/02/17 18:39) Comprehensive Metabolic Panel (04/02/17 18:39) Ct Abd/Pel W/O Iv Contrast (04/02/17 ) Ketorolac Inj (Toradol Inj) (04/02/17 19:30) Ondansetron Inj (Zofran Inj) (04/02/17 19:30) Sodium Chlor 0.9% 1000 Ml Inj (Ns 1000 M (04/02/17 19:30) Labs Laboratory Tests Test 04/02/17 04/02/17 18:15 18:50 Urine Collection Type CLEAN CATCH Urine Color YELLOW Urine Turbidity CLEAR Urine pH 6.0 Urine Specific [place] 1.013 Urine Protein NEG mg/dL Urine Glucose (UA) NEG mg/dL Urine Ketones NEG mg/dL Urine Occult Blood SMALL Urine Nitrite NEG Urine Bilirubin NEG Urine Leukocyte Esterase NEG Urine RBC 0-3 /hpf Urine Squamous Epithelial 0-5 /hpf Cells Microscopic Urinalysis Comment CULT NOT INDICATED Urine Collection Time 18:15 White Blood Count 9.2 TH/MM3 Red Blood Count 4.67 MIL/MM3 Hemoglobin 13.8 GM/DL Hematocrit 42.5 % Mean Corpuscular Volume 91.1 FL Mean Corpuscular Hemoglobin 29.6 PG Mean Corpuscular Hemoglobin 32.5 % Concent Red Cell Distribution Width 13.1 % Platelet Count 253 TH/MM3 Mean Platelet Volume 8.9 FL Neutrophils (%) (Auto) 67.0 % Lymphocytes (%) (Auto) 24.5 % Monocytes (%) (Auto) 6.9 % Eosinophils (%) (Auto) 0.7 % Basophils (%) (Auto) 0.9 % Neutrophils # (Auto) 6.1 TH/MM3 Lymphocytes # (Auto) 2.3 TH/MM3 Monocytes # (Auto) 0.6 TH/MM3 Eosinophils # (Auto) 0.1 TH/MM3 Basophils # (Auto) 0.1 TH/MM3 CBC Comment DIFF FINAL Differential Comment Sodium Level 144 MEQ/L Potassium Level 3.6 MEQ/L Chloride Level 104 MEQ/L Carbon Dioxide Level 35.6 MEQ/L Anion Gap 4 MEQ/L Blood Urea Nitrogen 14 MG/DL Creatinine 0.75 MG/DL Estimat Glomerular Filtration 78 ML/MIN Rate Random Glucose 96 MG/DL Calcium Level 8.6 MG/DL Total Bilirubin 0.2 MG/DL Aspartate Amino Transf 22 U/L (AST/SGOT) Alanine Aminotransferase 36 U/L (ALT/SGPT) Alkaline Phosphatase 79 U/L Total Protein 7.0 GM/DL Albumin 3.1 GM/DL [facility] Medical Record Reviewed: Yes Supervised Visit with SHENG: No Diagnosis Primary Impression: Right flank pain Med/Other Pt SpecificInfo: Prescription(s) given Scripts Ibuprofen (Motrin Ib)200 Mg [id number] Mg PO QID PRN (PAIN SCALE 1 TO 10) #20 Prov:Viviana Lam MD 04/02/17 Disposition: 01 DISCHARGE HOME Condition: Stable Viviana Lam MD Apr 02, 2017 19:56
[2017-04-02 20:11] VITALS: BP 137/83
== END 2017-04-02 20:19 | disposition home or self-care (01) ==
LOC: PHED 17:48
DX: R10.9 Unspecified abdominal pain (principal)
CPT/HCPCS: 74176; 80053; 81001; 85025; 96374; 96375; 99285; J1885; J2405; J7030

== ENCOUNTER → 2017-09-22 | Outpatient (CLI) | payer MEDICARE, MEDICAID ==
[~2017-09-22] MED LIST changes: +CYCL10TA PO; -CYCL1TAB29 PO; +IBUP-1129 PO; -OMEP20TA PO; +OMEP20TA93 PO; +[UNRECOGNIZED DRUG - CODE] IM
[2017-09-22 11:47] LABS: AUTOMATED NEUTROPHIL # 5.8 TH/MM3 (1.8-7.7); BASOPHIL % 0.6 % (0.0-2.0); EOSINOPHIL # 0.3 TH/MM3 (0-0.4); EOSINOPHIL % 3.7 % (0.0-4.0); HEMATOCRIT 42.4 % (35.0-46.0); HEMOGLOBIN 13.8 GM/DL (11.6-15.3); LYMPH % 22.4 % (9.0-44.0); LYMPHOCYTE # 1.9 TH/MM3 (1.0-4.8); MEAN CELL VOLUME 91.1 FL (80.0-100.0); MEAN CORPUSCULAR HEMOGLOBIN 29.7 PG (27.0-34.0); MEAN CORPUSCULAR HGB CONC 32.6 % (32.0-36.0); MEAN PLATELET VOLUME 8.9 FL (7.0-11.0); MONO % 6.9 % (0.0-8.0); MONOCYTE # 0.6 TH/MM3 (0-0.9); NEUT % 66.4 % (16.0-70.0); PLATELET COUNT 298 TH/MM3 (150-450); RED BLOOD COUNT 4.65 MIL/MM3 (4.00-5.30); WHITE BLOOD COUNT 8.7 TH/MM3 (4.0-11.0)
[2017-09-22 11:54] LABS: AMYLASE 27 U/L (25-115); LIPASE 59 U/L (73-393)
[2017-09-22 11:57] LABS: ALBUMIN 3.2 GM/DL (3.4-5.0); AST (GOT) 37 U/L (15-37); BICARBONATE 27.8 MEQ/L (21.0-32.0); BLOOD UREA NITROGEN 15 MG/DL (7-18); CALCIUM 9.2 MG/DL (8.5-10.1); CHLORIDE 105 MEQ/L (98-107); CREATININE 0.74 MG/DL (0.50-1.00); GLOMERULAR FILTRATION RATE 79 ML/MIN (>89); GLUCOSE,FASTING 94 MG/DL (74-99); SODIUM (NA) 139 MEQ/L (136-145)
[2017-09-22 11:59] LABS: ALT (GPT) 60 U/L (10-53); CHOLESTEROL 159 MG/DL (120-200); TRIGLYCERIDES 131 MG/DL (42-150)
[2017-09-22 12:09] LABS: ALKALINE PHOSPHATASE 104 U/L (45-117); CHOLESTEROL/ HDL RATIO 2.56 RATIO; LDL CHOLESTEROL 71 MG/DL (0-99); TOTAL BILIRUBIN ADULT 0.3 MG/DL (0.2-1.0); TOTAL PROTEIN 7.3 GM/DL (6.4-8.2)
[2017-09-22 16:15] LABS: HEMOGLOBIN A1C 6.1 % (4.3-6.0)
== END ==
LOC: PLAB 08:13
PROVIDERS: ATTEND Specialist
DX: R10.9 Unspecified abdominal pain (principal); E03.9 Hypothyroidism, unspecified; E78.2 Mixed hyperlipidemia; E11.9 Type 2 diabetes mellitus without complications; I10 Essential (primary) hypertension
CPT/HCPCS: 36415; 80053; 80061; 82150; 83036; 83690; 84443; 85025

== ENCOUNTER → 2017-10-31 | Outpatient (CLI) | payer MEDICARE, MEDICAID ==
[2017-10-31 13:28] LABS: AUTOMATED NEUTROPHIL # 5.5 TH/MM3 (1.8-7.7); BASOPHIL # 0.1 TH/MM3 (0-0.2); BASOPHIL % 0.7 % (0.0-2.0); EOSINOPHIL # 0.2 TH/MM3 (0-0.4); EOSINOPHIL % 2.3 % (0.0-4.0); HEMATOCRIT 40.3 % (35.0-46.0); HEMOGLOBIN 13.6 GM/DL (11.6-15.3); LYMPH % 28.6 % (9.0-44.0); LYMPHOCYTE # 2.5 TH/MM3 (1.0-4.8); MEAN CELL VOLUME 90.5 FL (80.0-100.0); MEAN CORPUSCULAR HEMOGLOBIN 30.5 PG (27.0-34.0); MEAN CORPUSCULAR HGB CONC 33.7 % (32.0-36.0); MEAN PLATELET VOLUME 8.6 FL (7.0-11.0); MONO % 6.4 % (0.0-8.0); MONOCYTE # 0.6 TH/MM3 (0-0.9); PLATELET COUNT 361 TH/MM3 (150-450); RED BLOOD COUNT 4.45 MIL/MM3 (4.00-5.30); RED CELL DISTRIBUTION WIDTH 14.2 % (11.6-17.2); WHITE BLOOD COUNT 8.8 TH/MM3 (4.0-11.0)
[2017-10-31 13:53] LABS: ALT (GPT) 27 U/L (10-53); BICARBONATE 30.9 MEQ/L (21.0-32.0); BLOOD UREA NITROGEN 15 MG/DL (7-18); CHLORIDE 101 MEQ/L (98-107); CREATININE 0.86 MG/DL (0.50-1.00); GLOMERULAR FILTRATION RATE 66 ML/MIN (>89); GLUCOSE,RANDOM 109 MG/DL (74-106); SODIUM (NA) 139 MEQ/L (136-145)
[2017-10-31 14:00] LABS: ALBUMIN 3.3 GM/DL (3.4-5.0); ALKALINE PHOSPHATASE 88 U/L (45-117); AST (GOT) 21 U/L (15-37); TOTAL BILIRUBIN ADULT 0.3 MG/DL (0.2-1.0); TOTAL PROTEIN 7.5 GM/DL (6.4-8.2)
[2017-11-03 03:51] LABS: HCV RNA PCR IU/ML LESS THAN 15 IU/mL (Not Detected)
== END ==
LOC: PLAB 11:14
PROVIDERS: ATTEND Family Medicine
DX: R10.13 Epigastric pain (principal); Z86.19 Personal history of other infectious and parasitic diseases
CPT/HCPCS: 36415; 80053; 83690; 85025; 87522

== ENCOUNTER → 2017-12-27 | Outpatient (CLI) | payer MEDICARE ==
[2017-12-27 14:49] LABS: BICARBONATE 31.3 MEQ/L (21.0-32.0); CALCIUM 9.2 MG/DL (8.5-10.1)
[2017-12-27 18:45] LABS: AUTOMATED NEUTROPHIL # 5.7 TH/MM3 (1.8-7.7); BASOPHIL # 0.1 TH/MM3 (0-0.2); BASOPHIL % 1.1 % (0.0-2.0); EOSINOPHIL # 0.2 TH/MM3 (0-0.4); EOSINOPHIL % 2.3 % (0.0-4.0); HEMATOCRIT 41.1 % (35.0-46.0); HEMOGLOBIN 13.4 GM/DL (11.6-15.3); LYMPH % 23.5 % (9.0-44.0); MEAN CELL VOLUME 92.3 FL (80.0-100.0); MEAN CORPUSCULAR HEMOGLOBIN 30.1 PG (27.0-34.0); MEAN CORPUSCULAR HGB CONC 32.6 % (32.0-36.0); MEAN PLATELET VOLUME 9.1 FL (7.0-11.0); MONO % 6.9 % (0.0-8.0); MONOCYTE # 0.6 TH/MM3 (0-0.9); NEUT % 66.2 % (16.0-70.0); PLATELET COUNT 312 TH/MM3 (150-450); RED BLOOD COUNT 4.45 MIL/MM3 (4.00-5.30); WHITE BLOOD COUNT 8.7 TH/MM3 (4.0-11.0)
== END ==
LOC: PLAB 13:38
PROVIDERS: ATTEND Family Medicine
DX: I50.9 Heart failure, unspecified (principal)
CPT/HCPCS: 36415; 80048; 83880; 85025

== ENCOUNTER 2018-01-09 08:03 | Emergency (ER) | payer MEDICARE, MEDICAID ==
[~2018-01-09] VITALS: Ht 157.5 cm; Wt 119.8 kg
[2018-01-09 08:06] VITALS: BP 153/72; PULSE 98; RESP 22; TEMP 97.2; O2SAT 94
[2018-01-09 08:18] VITALS: BP 105/79; PULSE 93; RESP 20; TEMP 97.5; O2SAT 95
--- NOTE | 2018-01-09 08:24 | PD ---
HPI Chief Complaint: Respiratory Symptoms Time Seen by Provider: 08:10 Travel History International Travel<30 days: No Contact w/Intl Traveler<30days: No Traveled to known affect area: No History of Present Illness HPI This 62-year-old female says she been sick since Tuesday. Tuesday she started coughing up yellow phlegm. Short of breath over the period of time. She stopped smoking 20 years ago. She does have a history of asthma leak in her mitral valve. She is on Ventolin and Advair for her COPD. She has a history of chronic back and shoulder pain. PFSH Past Medical History Hx Anticoagulant Therapy: No Arthritis: Yes Asthma: Yes Bipolar Disorder: Yes Anxiety: Yes Depression: Yes Heart Rhythm Problems: Yes (PVC'S) Cancer: No Cardiac Catheterization: No Cardiovascular Problems: Yes (HTN) High Cholesterol: Yes Congestive Heart Failure: No COPD: Yes Diabetes: Yes Patient Takes Glucophage: No Diminished Hearing: No Endocrine: Yes (HYPOTHYROIDISM) Fibromyalgia: Yes Gastrointestinal Disorders: Yes GERD: Yes Genitourinary: Yes Headaches: Yes Hepatitis: Yes (C) Hiatal Hernia: Yes (GERD; HX ULCER; ESOPHAGEAL STRICTURE) Heparin Induced Thrombocytopen: No Herniated Disk: Yes (L5) Hypertension: Yes Immune Disorder: No Implanted Vascular Access Dvce: No Insomnia: Yes Kidney Stones: Yes Medical other: Yes (ARTHRITIS; FIBROMYALGIA) Musculoskeletal: Yes Neurologic: Yes Psychiatric: Yes Reproductive: No Respiratory: Yes (copd) Immunizations Current: Yes Migraines: Yes Myocardial Infarction: No Seizures: Yes (PREVIOUS) Shingles: Yes Thyroid Disease: Yes Ulcer: Yes (GASTRIC) Tetanus Vaccination: Unknown Influenza Vaccination: No ?: Not Menopausal: Yes : 1 Para: 1 Past Surgical History Abdominal Surgery: Yes (GALLBLADDER) Appendectomy: Yes Cholecystectomy: Yes Coronary Artery Bypass Graft: No Gynecologic Surgery: Yes (HYSTERECTOMY) Hysterectomy: Yes Other Surgery: Yes (KIDNEY STONE REMOVAL) Family History Family Myocardial Infarction: Yes Social History Alcohol Use: Yes (occasionally) Tobacco Use: No (QUIT) Substance Use: No Allergies-Medications (Allergen,Severity, Reaction): Coded Allergies: codeine (Verified Allergy, Severe, Shortness of Breath, 01/09/18) propranolol (Verified Allergy, Severe, Nausea/Vomiting, 01/09/18) Reported Meds & Prescriptions Reported Meds & Active Scripts Active Cymbalta DR (Duloxetine HCl) 60 Mg Capdr 60 Mg PO HS Reported Fentanyl Patch 72 HR (Fentanyl) 50 Mcg/Hr Patch 50 Mcg T-DERMAL Q72H Remove old patch when new one placed. Aripiprazole 15 Mg Tab 15 Mg PO HS Naloxone Inj (Naloxone HCl) 0.4 Mg/Ml Inj 0.4 Mg IM ONCE PRN Advair Diskus Inh (Fluticasone-Salmeterol Inh) 250-50 Mcg/Blist Aer 1 Puff INH BID Rinse mouth after use. Gabapentin 100 Mg Cap 200 Mg PO TID Levothyroxine (Levothyroxine Sodium) 100 Mcg Tab 100 Mcg PO DAILY Lasix (Furosemide) 20 Mg Tab 20 Mg PO DAILY Promethazine (Promethazine HCl) 12.5 Mg Tab 12.5 Mg PO Q4H PRN Omeprazole 20 Mg Tab 20 Mg PO BID Flexeril (Cyclobenzaprine HCl) 10 Mg Tab 10 Mg PO TID Oxycodone-Acetaminophen 10-325 mg Tab 1 Tab PO Q4H PRN Review of Systems General / Constitutional: No: Fever, Chills Eyes: No: Diploplia, Blurred Vision HENT: No: Vertigo Cardiovascular: No: Chest Pain or Discomfort Respiratory: Positive: Cough, Shortness of Breath Gastrointestinal: No: Vomiting, Diarrhea Genitourinary: No: Urgency, Frequency Musculoskeletal: No: Myalgias Skin: No Rash Hematologic/Lymphatic: Positive: Easy Bruising Physical Exam Narrative GENERAL: Well-developed female SKIN: Focused skin assessment warm/dry. HEAD: Atraumatic. Normocephalic. EYES: Pupils equal and round. No scleral icterus. No injection or drainage. ENT: No nasal bleeding or discharge. Mucous membranes pink and moist. NECK: Trachea midline. No JVD. CARDIOVASCULAR: Regular rate and rhythm. No murmur appreciated. RESPIRATORY: No accessory muscle use. There are scattered bilateral wheezes breath sounds equal bilaterally. GASTROINTESTINAL: Abdomen soft, non-tender, nondistended. Hepatic and splenic margins not palpable. MUSCULOSKELETAL: No obvious deformities. No clubbing. No cyanosis. No edema. NEUROLOGICAL: Awake and alert. No obvious cranial nerve deficits. Motor grossly within normal limits. Normal speech. PSYCHIATRIC: Appropriate mood and affect; insight and judgment normal. Data Data Last Documented VS Vital Signs Date Time Temp Pulse Resp B/P (MAP) Pulse Ox O2 Delivery O2 Flow Rate FiO2 01/09/18 10:34 80 16 118/63 (81) 93 Room Air 01/09/18 08:18 97.5 Orders Orders Complete Blood Count With Diff (01/09/18 08:20) Basic Metabolic Panel (Bmp) (01/09/18 08:20) B-Type Natriuretic Peptide (01/09/18 08:20) Influenzae A/B Antigen (01/09/18 08:20) Blood Culture (01/09/18 08:20) Iv Access Insert/Monitor (01/09/18 08:20) Ecg Monitoring (01/09/18 08:20) Oximetry (01/09/18 08:20) Oxygen Administration (01/09/18 08:20) Chest, Single Ap (01/09/18 08:20) Sodium Chloride 0.9% Flush (Ns Flush) (01/09/18 08:30) Methylprednisolone So Succ Inj (Solumedr (01/09/18 08:30) Albuterol-Ipratropium Neb (Duoneb Neb) (01/09/18 08:30) Methylprednisolone So Succ Inj (Solumedr (01/09/18 10:00) Labs Laboratory Tests Test 01/09/18 08:35 01/09/18 10:00 White Blood Count 8.6 TH/MM3 Red Blood Count 4.30 MIL/MM3 Hemoglobin 12.6 GM/DL Hematocrit 38.2 % Mean Corpuscular Volume 88.8 FL Mean Corpuscular Hemoglobin 29.3 PG Mean Corpuscular Hemoglobin Concent 32.9 % Red Cell Distribution Width 12.7 % Platelet Count 336 TH/MM3 Mean Platelet Volume 9.1 FL Neutrophils (%) (Auto) 70.4 % Lymphocytes (%) (Auto) 17.5 % Monocytes (%) (Auto) 5.5 % Eosinophils (%) (Auto) 3.3 % Basophils (%) (Auto) 3.3 % Neutrophils # (Auto) 6.0 TH/MM3 Lymphocytes # (Auto) 1.5 TH/MM3 Monocytes # (Auto) 0.5 TH/MM3 Eosinophils # (Auto) 0.3 TH/MM3 Basophils # (Auto) 0.3 TH/MM3 CBC Comment DIFF FINAL Differential Comment B-Type Natriuretic Peptide 5 PG/ML Blood Urea Nitrogen 24 MG/DL Creatinine 0.79 MG/DL Random Glucose 110 MG/DL Calcium Level 8.9 MG/DL Sodium Level 139 MEQ/L Potassium Level 4.5 MEQ/L Chloride Level 105 MEQ/L Carbon Dioxide Level 28.1 MEQ/L Anion Gap 6 MEQ/L Estimat Glomerular Filtration Rate 73 ML/MIN MDM Medical Decision Making Medical Screen Exam Complete: Yes Emergency Medical Condition: Yes Medical Record Reviewed: Yes Differential Diagnosis Differential includes pneumonia, COPD, asthma exacerbation Narrative Course X-rays negative for pneumonia. Patient was given some nebulizer treatments with improvement. Impression is bronchitis. She will be put on amoxicillin and a short course of prednisone Diagnosis Primary Impression: Acute bronchitis Scripts Prednisone (Prednisone) 20 Mg Tab 20 MG PO DIRECTED, #24 TAB 0 Refills Take 60 MG daily x 4 days, then 40 MG x 4 days, then 20 MG daily x 4 days. Prov: Nikita Etienne MD 01/09/18 Amoxicillin (Amoxicillin) 500 Mg Cap 500 MG PO TID for Infection for 7 Days, CAP 0 Refills Prov: Nikita Etienne MD 01/09/18 Disposition: 01 DISCHARGE HOME Condition: Stable Nikita Etienne MD Jan 09, 2018 08:24
[2018-01-09 08:25] VITALS: O2SAT 95
[2018-01-09] MEDS ORDERED: methylPREDNISolone SOD SUCC 125 MG/2 ML VIAL IV PUSH ONE ×2 (08:30→10:00)
[2018-01-09] MEDS ORDERED: SODIUM CHLORIDE 0.9% FLUSH 10 ML FLUSH IVF PRN (08:30)
[2018-01-09] MEDS: RESP: ALBUTEROL 2.5 MG/IPRATROPIUM 0.5 MG NEB (SCH) INH ×2 (08:52→08:56)
[2018-01-09 09:01] LABS: BASOPHIL # 0.3 TH/MM3 (0-0.2); BASOPHIL % 3.3 % (0.0-2.0); EOSINOPHIL # 0.3 TH/MM3 (0-0.4); EOSINOPHIL % 3.3 % (0.0-4.0); HEMATOCRIT 38.2 % (35.0-46.0); HEMOGLOBIN 12.6 GM/DL (11.6-15.3); LYMPH % 17.5 % (9.0-44.0); LYMPHOCYTE # 1.5 TH/MM3 (1.0-4.8); MEAN CELL VOLUME 88.8 FL (80.0-100.0); MEAN CORPUSCULAR HEMOGLOBIN 29.3 PG (27.0-34.0); MEAN CORPUSCULAR HGB CONC 32.9 % (32.0-36.0); MEAN PLATELET VOLUME 9.1 FL (7.0-11.0); MONO % 5.5 % (0.0-8.0); MONOCYTE # 0.5 TH/MM3 (0-0.9); NEUT % 70.4 % (16.0-70.0); PLATELET COUNT 336 TH/MM3 (150-450); RED CELL DISTRIBUTION WIDTH 12.7 % (11.6-17.2); WHITE BLOOD COUNT 8.6 TH/MM3 (4.0-11.0)
[2018-01-09] MEDS ORDERED: FENT50DI T-DERMAL (09:07)
[2018-01-09] MEDS ORDERED: ARIP1TAB13 PO (09:07)
[2018-01-09] MEDS ORDERED: OXYC1TAB36 PO (09:07)
[2018-01-09 09:45] VITALS: BP 119/66; PULSE 74; RESP 20; O2SAT 94
--- NOTE | 2018-01-09 10:01 | RADRPT ---
EXAM DATE/TIME: 01/09/2018 09:11 [facility] COMPARISON: CHEST SINGLE AP, August 11, 2015, 20:30. INDICATIONS : Short of breath MEDICAL HISTORY : None. SURGICAL HISTORY : None. ENCOUNTER: Initial ACUITY: 1 day PAIN SCORE: 0/10 LOCATION: chest FINDINGS: Exam is limited due to patient rotation. Mild platelike air space disease in the right lower lung zon e similar to prior exam. No new focal pleural or parenchymal opacities. The cardiomediastinal contou rs are unremarkable. Osseous structures are intact. CONCLUSION: 1. No acute abnormality or interval change. Jean Banks MD on January 09, 2018 at 9:50 Board Certified Radiologist. This report was verified electronically.
[2018-01-09 10:19] LABS: BICARBONATE 28.1 MEQ/L (21.0-32.0); CALCIUM 8.9 MG/DL (8.5-10.1)
[2018-01-09 10:23] LABS: CREATININE 0.79 MG/DL (0.50-1.00)
[2018-01-09 10:34] VITALS: BP 118/63; PULSE 80; RESP 16; O2SAT 93
[2018-01-09] MEDS ORDERED: PRED20 PO (10:55)
[2018-01-09] MEDS ORDERED: AMOX500C PO (10:55)
== END 2018-01-09 11:15 | disposition home or self-care (01) ==
LOC: PHED 08:03
DX: J20.9 Acute bronchitis, unspecified (principal); J44.0 Chronic obstructive pulmonary disease with (acute) lower respiratory infection; E78.00 Pure hypercholesterolemia, unspecified; E11.9 Type 2 diabetes mellitus without complications; I10 Essential (primary) hypertension; E03.9 Hypothyroidism, unspecified; K21.9 Gastro-esophageal reflux disease without esophagitis; F31.9 Bipolar disorder, unspecified; Z87.891 Personal history of nicotine dependence
CPT/HCPCS: 71045; 80048; 83880; 85025; 87040; 87804; 94640; 94664; 96374; 99284; J2930